=== PATIENT | female | born 1950 | race Caucasian/White ===

== ENCOUNTER → 2016-09-10 | Outpatient (CLI) | payer OTHER ==
[~2016-09-10] MED LIST: ALLO300T2 PO; ASPI81CH2 PO; ATOR-24 PO; FLUT0.15 NAE; INSUINJ4 SQ; LOSA1TAB38 PO; METF1000 PO; METO25TA56 PO; NVLGI SC; PANT40TA PO; VITBC PO
[2016-09-10 15:08] LABS: ALB/GLOB RATIO 1.1 (0.9-2); ALKALINE PHOSPHATASE 69 U/L (45-117); ALT/SGPT 27 U/L (12-78); AST/SGOT 17 U/L (15-37); BLOOD UREA NITROGEN 13 mg/dl (7-18); BUN/CREATININE RATIO 16.4 (10-20); CALCIUM 8.8 mg/dl (8.5-10.1); CARBON DIOXIDE 27 mmol/L (21-32); CHLORIDE 111 mmol/L (98-107); CHOLESTEROL 155 mg/dl (0-200); CHOLESTEROL/HDL RATIO 3.3; CREATININE 0.77 mg/dl (0.60-1.20); GLUCOSE 115 mg/dl (70-99); HDL CHOLESTEROL 47 mg/dl; LDL CHOLESTEROL CALCULATED 85 mg/dl; POTASSIUM 4.7 mmol/L (3.5-5.1); SODIUM 144 mmol/L (136-145); TRIGLYCERIDES 117 mg/dl (0-150); URIC ACID 3.5 mg/dl (2.6-7.2); VERY LOW DENSITY LIPOPROT CALC 23 mg/dl
[2016-09-11 06:27] LABS: ESTIMATED AVERAGE GLUCOSE 166 mg/dl; HA1C FLAG Normal (Normal)
== END | disposition home or self-care (01) ==
LOC: C.LABBC 10:21
PROVIDERS: ATTEND Family Medicine
DX: E11.65 Type 2 diabetes mellitus with hyperglycemia (principal); I10 Essential (primary) hypertension; E78.5 Hyperlipidemia, unspecified; E83.51 Hypocalcemia; M10.9 Gout, unspecified

== ENCOUNTER → 2016-10-05 | Outpatient (CLI) | payer OTHER ==
--- NOTE | 2016-10-05 10:10 | DIAGNOSTIC IMAGING REPORT ---
CT SCAN OF THE CHEST WITHOUT IV CONTRAST CLINICAL HISTORY: Follow-up pulmonary nodule. COMPARISON STUDY: Chest CT scans dated 10/04/2015 and 01/22/2014. TECHNIQUE: CT scan of the thorax was performed from the thoracic inlet to the upper abdomen. Images are reviewed in the axial, sagittal, and coronal planes. IV contrast was not administered for this examination as per the referring clinician. CT DOSE: 594.74 mGycm FINDINGS: Thyroid: Imaged portions of the thyroid gland are normal in size and attenuation. Thoracic aorta: There is mild atherosclerotic calcification of the thoracic aorta, which is normal in caliber and demonstrates standard 3-vessel arch anatomy. Heart: The heart is normal in size and without pericardial effusion. The coronary arteries are densely calcified. Lungs and pleural spaces: There are numerous (at least 6) scattered pulmonary nodules. These are similar in size and distribution dating back to the 01/22/2014 examination. The largest is in the right upper lobe as seen on image #95 and measures 7 mm. A 5 mm nodule is in the left lower lobe along the major fissure seen on image #104 and a 3 mm right lower lobe nodule is seen on image #97. No new pulmonary lesions are identified. There is no airspace consolidation or pleural effusion. The trachea and central airways are clear. Mediastinum: There is no mediastinal lymphadenopathy. Tessy: Not well assessed without IV contrast. Axillae: There is no axillary lymphadenopathy. Upper abdomen: Partially visualized upper abdominal viscera is within normal limits. Skeletal structures: The skeletal structures are osteopenic. No lytic or blastic bony lesions are seen. IMPRESSION: 1. There is no airspace consolidation or pleural effusion. 2. Scattered pulmonary nodules measuring up to 7 mm are unchanged in size and distribution dating back to 01/22/2014. These are of doubtful significance given over 2 years of stability. 3. No new pulmonary lesions are identified. Electronically signed by: Ruben Silver M.D. 10/05/2016 10:08 AM Dictated Date/Time: 10/05/2016 9:49 AM
== END | disposition home or self-care (01) ==
LOC: C.CTS 09:33
PROVIDERS: ATTEND Internal Medicine Critical Care Medicine
DX: R91.8 Other nonspecific abnormal finding of lung field (principal)